=== PATIENT | male | born 1960 | race Caucasian/White ===

== ENCOUNTER → 2016-11-29 | Outpatient (CLI) | payer BC ==
--- NOTE | 2016-11-29 17:58 | DIAGNOSTIC IMAGING REPORT ---
(TESTICULAR) SCROTUM-CONT CLINICAL HISTORY: 56 years-old Male with EPIDIDYMITIS WITH NO ABSCESS. Acute scrotal pain COMPARISON STUDY: None available TECHNIQUE: Real-time, grayscale, and color Doppler sonography of the testes and scrotum is performed. Images are reviewed in the transverse and longitudinal planes. FINDINGS: RIGHT HEMISCROTUM: The right testis measures 4.3 x 2.9 x 2.5 cm and the parenchyma appears to be within normal limits. No intratesticular mass is seen. Normal-appearing arterial inflow is present within the right testicle. There is a small right-sided epididymal head cyst, 3 x 3 mm. There is an echogenic focus with ill-defined margins of the epididymal tail measuring up to 9 mm with internal vascularity. Epididymal tail appears to be enlarged and mildly heterogeneous. Small minimally complex right-sided hydrocele is noted. LEFT HEMISCROTUM: The left testis measures 4.1 x 2.6 x 2.4 cm. There is a hypoechoic peripherally echogenic structure within the inferior left testicle, 0.3 x 0.3 x 0.3 cm without significant posterior acoustic features. No internal vascularity. This appears to be cystic. Normal-appearing arterial inflow is present within the left testicle. The left epididymal head appears normal. There is a small mildly complex left-sided hydrocele present. IMPRESSION: 1. Enlarged heterogeneous appearance of the right epididymal tail with a focal area of increased echogenicity measuring 9 mm suggests epididymitis. Follow-up is recommended as an epididymal mass may have a similar appearance. 2. No evidence of testicular torsion. 3. Cystic appearing lesion of the inferior left testicle is noted measuring up to 0.3 cm. This is nonspecific, however appears benign. Attention on follow-up recommended. 4. Small bilateral mildly complex hydroceles. The above report was generated using voice recognition software. It may contain grammatical, syntax or spelling errors. Electronically signed by: Mook Fox M.D. 11/29/2016 5:57 PM Dictated Date/Time: 11/29/2016 5:49 PM
== END | disposition home or self-care (01) ==
LOC: C.ULTR 17:19
PROVIDERS: ATTEND Internal Medicine
DX: N45.1 Epididymitis (principal); N43.3 Hydrocele, unspecified